=== PATIENT | female | born 1965 | race Two or more races ===

== ENCOUNTER 2023-05-26 16:10 | Emergency (ER) | payer MEDICAID, OTHER ==
[~2023-05-26] VITALS: Ht 165.1 cm; Wt 104.3 kg
[~2023-05-26 16:10] MED LIST: AMLO10TA59 PO; DICY20TA11 PO; DULA0.75 SQ; GLIP10TA11 PO; HYDR-3980 PO; METF-442 PO; ONDA4TAB5 PO
[2023-05-26] MEDS ORDERED: IV NORMAL SALINE 500 ML IV ONE (17:30)
[2023-05-26] MEDS ORDERED: KETOROLAC TROMETHAMINE 15 MG INJ IVP ONE (17:30)
[2023-05-26] MEDS ORDERED: KETOROLAC TROMETHAMINE 15 MG INJ ONE (17:32)
[2023-05-26 17:41] LABS: BASOPHILS # (AUTO) 0.1 K/UL (0.0-0.2); BASOPHILS % (AUTO) 1.3 % (0.0-2.0); EOSINOPHILS # (AUTO) 0.1 K/uL (0.0-0.7); EOSINOPHILS % (AUTO) 2.6 % (0.0-7.0); HEMOGLOBIN 12.8 g/dL (10.9-14.3); LYMPHOCYTES # (AUTO) 1.6 K/uL (0.8-4.8); LYMPHOCYTES % (AUTO) 36.9 % (20.5-51.5); MEAN CORPUSCULAR HEMOGLOBIN 30.5 uug (24.7-32.8); MEAN CORPUSCULAR HGB CONC 33 g/dL (32.3-35.6); MEAN CORPUSCULAR VOLUME 92.6 fL (75.5-95.3); MONOCYTES # (AUTO) 0.5 K/uL (0.1-1.30); NEUTROPHILS # (AUTO) 2.1 K/uL (1.8-8.9); NEUTROPHILS % (AUTO) 48.2 % (38.5-71.5); PLATELET COUNT (AUTO) 257 K/uL (179-408); RED BLOOD CELL COUNT(AUTO) 4.21 MIL/uL (3.63-4.92); RED CELL DISTRIBUTION WIDTH 13.3 % (12.3-17.7); WHITE BLOOD COUNT (AUTO) 4.4 K/uL (3.8-11.8)
[2023-05-26 17:50] LABS: CALCIUM 8.5 mg/dL (8.5-10.1); CARBON DIOXIDE 29 mmol/L (21-32); CHLORIDE 102 mmol/L (98-107); CREATININE 0.6 mg/dL (0.6-1.3); GLUCOSE 112 mg/dL (74-106); POTASSIUM 3.3 mmol/L (3.5-5.1); SODIUM SERUM 137 mmol/L (136-145); UREA NITROGEN, BLOOD 9 mg/dL (7-18)
[2023-05-26 18:04] LABS: ALANINE AMINOTRANSFERASE 16 U/L (14-59); ALBUMIN 3.2 g/dL (3.4-5.0); ALKALINE PHOSPHATASE 69 U/L (50-136); ASPARTATE AMINOTRANSFERASE 17 U/L (15-37); BILIRUBIN,TOTAL 0.3 mg/dL (0.2-1.0); CREATINE KINASE, TOTAL 133 U/L (26-192); LACTATE DEHYDROGENASE 143 U/L (81-234); NT-PRO BNP 146 pg/mL (0-125); TOTAL PROTEIN, SERUM 7.1 g/dL (6.4-8.2)
[2023-05-26 19:16] LABS: C-REACTIVE PROTEIN 0.01 mg/dL (0.00-0.30); FERRITIN < 1 ng/mL (8-252)
[2023-05-26] MEDS ORDERED: DEXAMETHASONE SOD PHOSPHATE 4 MG INJ IV ONE (21:00)
[2023-05-26] MEDS ORDERED: MORPHINE SULFATE 4 MG/1 ML DISP.SYRIN IV ONE (21:00)
[2023-05-26] MEDS ORDERED: ONDANSETRON 4 MG/2 ML VIAL IV ONE (21:00)
[2023-05-26] MEDS ORDERED: DEXAMETHASONE SOD PHOSPHATE 10 MG INJ ONE (21:20)
[2023-05-26] MEDS ORDERED: MORPHINE SULFATE 4 MG/1 ML DISP.SYRIN ONE (21:21)
[2023-05-26] MEDS ORDERED: ONDANSETRON 4 MG/2 ML VIAL ONE (21:21)
[2023-05-26] MEDS ORDERED: PRED50TA PO ×3 (21:44→23:14)
[2023-05-26] MEDS ORDERED: paxlovid PO (21:44)
[2023-05-26] MEDS ORDERED: HYDR-3980 PO (21:44)
[2023-05-26] MEDS ORDERED: HYDR-3976 PO ×3 (21:49→23:12)
[2023-05-26 23:01] VITALS: BP 121/63; TEMP 98.5; O2SAT 98
== END 2023-05-26 22:45 | disposition home or self-care (01) ==
LOC: ER 16:14
DX: U07.1 COVID-19 (principal); M54.31 Sciatica, right side; I10 Essential (primary) hypertension; E11.9 Type 2 diabetes mellitus without complications; Z79.899 Other long term (current) drug therapy
CPT/HCPCS: 99285; 96374; 96375; 71045; 96361; 87635; 87426; 87804 ×2; 80053; 82550; 82728; 83880; 83615; 85025; 84145; 85379; 86140; 87040; 84484; 36415; 93005; 83605; C9803; J1100; J1885; J2405; J2270; J7040; A4606; A4663

== ENCOUNTER 2023-07-23 14:50 | Emergency (ER) | payer MEDICAID, OTHER ==
[~2023-07-23] VITALS: Ht 165.1 cm; Wt 104.3 kg
[~2023-07-23 14:50] MED LIST changes: +HYDR-3976 PO; +PRED50TA PO; +paxlovid PO
[2023-07-23] MEDS ORDERED: KETOROLAC TROMETHAMINE 30 MG INJ ONE (15:10)
[2023-07-23] MEDS ORDERED: ONDANSETRON 4 MG/2 ML VIAL ONE (15:10)
[2023-07-23] MEDS: KETOROLAC TROMETHAMINE 15 MG INJ IVP ONE (15:39)
[2023-07-23] MEDS: ONDANSETRON 4 MG/2 ML VIAL IV ONE (15:39)
[2023-07-23] MEDS: IV NORMAL SALINE 1000 ML BAG IV ONE (15:39)
[2023-07-23 15:49] LABS: BASOPHILS % (AUTO) 0.2 % (0.0-2.0); EOSINOPHILS # (AUTO) 0.1 K/uL (0.0-0.7); HEMATOCRIT 43.1 % (31.2-41.9); HEMOGLOBIN 14.6 g/dL (10.9-14.3); LYMPHOCYTES # (AUTO) 1.1 K/uL (0.8-4.8); LYMPHOCYTES % (AUTO) 16.3 % (20.5-51.5); MEAN CORPUSCULAR HEMOGLOBIN 31.5 uug (24.7-32.8); MEAN CORPUSCULAR HGB CONC 34 g/dL (32.3-35.6); MEAN CORPUSCULAR VOLUME 92.7 fL (75.5-95.3); MONOCYTES # (AUTO) 0.3 K/uL (0.1-1.30); MONOCYTES % (AUTO) 4.2 % (0.0-11.0); NEUTROPHILS # (AUTO) 5.1 K/uL (1.8-8.9); NEUTROPHILS % (AUTO) 78.3 % (38.5-71.5); PLATELET COUNT (AUTO) 330 K/uL (179-408); RED BLOOD CELL COUNT(AUTO) 4.65 MIL/uL (3.63-4.92); RED CELL DISTRIBUTION WIDTH 14.1 % (12.3-17.7); WHITE BLOOD COUNT (AUTO) 6.5 K/uL (3.8-11.8)
[2023-07-23 16:10] LABS: DIFFERENTIAL COMMENT 1
[2023-07-23 16:16] LABS: CALCIUM 9.1 mg/dL (8.5-10.1); CREATININE 0.6 mg/dL (0.6-1.3); POTASSIUM 3.7 mmol/L (3.5-5.1)
[2023-07-23 16:21] LABS: ALBUMIN 3.8 g/dL (3.4-5.0); BILIRUBIN,DIRECT 0.2 mg/dL (0.0-0.2); BILIRUBIN,TOTAL 0.6 mg/dL (0.2-1.0); TOTAL PROTEIN, SERUM 8.1 g/dL (6.4-8.2)
[2023-07-23] MEDS ORDERED: ONDA4TAB11 PO (16:26)
[2023-07-23] MEDS ORDERED: DICY20TA11 PO (16:26)
[2023-07-23 17:00] VITALS: BP 169/98; O2SAT 98
== END 2023-07-23 17:01 | disposition home or self-care (01) ==
LOC: ER 14:50
DX: R10.12 Left upper quadrant pain (principal); R11.2 Nausea with vomiting, unspecified; R19.7 Diarrhea, unspecified; E11.9 Type 2 diabetes mellitus without complications; Z98.890 Other specified postprocedural states; Z79.899 Other long term (current) drug therapy
CPT/HCPCS: 36415; 83690; 85025; A4606; A4663; J1885; J2405; J7040